=== PATIENT | female | born 1955 | race Caucasian/White ===

== ENCOUNTER 2018-01-09 10:30 | Inpatient (IN) | payer MEDICAID ==
[~2018-01-09] VITALS: Ht 157.5 cm; Wt 88.5 kg
[2018-01-09 12:13] LABS: BASOPHILS % (AUTO) 0.6 % (0-1); EOSINOPHILS # (AUTO) 0.2 X10'3 (0-0.9); LYMPHOCYTES # (AUTO) 3.3 X10'3 (1.1-4.8); MEAN CORPUSCULAR HEMOGLOBIN 25.9 PG (27.0-31.0); MEAN CORPUSCULAR HGB CONC 32.7 % (33.0-36.5); MEAN CORPUSCULAR VOLUME 79.2 FL (78-98); MEAN PLATELET VOLUME 7.7 FL (7.4-10.4); MONOCYTES # (AUTO) 0.8 X10'3 (0-0.9); MONOCYTES % (AUTO) 10.5 % (2-12); NEUTROPHILS # (AUTO) 3.6 X10'3 (1.8-7.7); NEUTROPHILS % (AUTO) 44.9 % (42-75); PRE OP HEMOGLOBIN 13.7 g/dL (12.0-16.0); PRE OP PLATELET COUNT 319 X10'3 (140-440); RED CELL DISTRIBUTION WIDTH 14.8 % (11.5-14.5)
[2018-01-09 12:23] LABS: PRE OP INR 0.9 INR; PRE OP PROTIME 9.4 SECONDS (9.0-12.0)
[2018-01-09] MEDS ORDERED: LOSA25TA96 PO (12:32)
[2018-01-09] MEDS ORDERED: LORA10TA7 PO (12:32)
[2018-01-09] MEDS ORDERED: VOLTAREN GEL TOP (12:32)
[2018-01-09] MEDS ORDERED: NAPR-56 PO (12:32)
[2018-01-09] MEDS ORDERED: MONT10TA21 PO (12:32)
[2018-01-09] MEDS ORDERED: RANI150T44 PO (12:32)
[2018-01-09] MEDS ORDERED: CALC-854 PO (12:32)
[2018-01-09] MEDS ORDERED: ALBU18HF2 IH (12:32)
[2018-01-09] MEDS ORDERED: BECL7.3A INH (12:32)
[2018-01-09] MEDS ORDERED: LEVO100T PO (12:32)
[2018-01-09] MEDS ORDERED: MULT-38 PO (12:32)
[2018-01-09] MEDS ORDERED: METH500T PO (12:32)
[2018-01-09] MEDS ORDERED: PHYT100T PO (12:32)
[2018-01-09] MEDS ORDERED: CHOL10002 PO (12:32)
[2018-01-09 12:38] LABS: ALBUMIN/GLOBULIN RATIO 1.1 (1.1-1.5); ALKALINE PHOSPHATASE 68 IU/L (46-116); BLOOD UREA NITROGEN 14 MG/DL (7-18); BUN/CREATININE RATIO 19.2 (6.6-38.0); CALCIUM 10.4 MG/DL (8.5-10.1); CHLORIDE 104 MMOL/L (99-107); CREATININE 0.73 MG/DL (0.40-0.90); PRE OP ALT 35 U/L (30-65); PRE OP ANION GAP 10 (8-16); PRE OP AST 19 U/L (10-37); PRE OP BILIRUB, TOTAL 0.5 MG/DL (0.0-1.0); PRE OP GLUCOSE 89 MG/DL (70-104); PRE OP SODIUM 143 MMOL/L (135-145); TOTAL PROTEIN 7.6 G/DL (6.4-8.2); eGFR 81 ML/MIN
[2018-01-15] VITALS (18 sets, daily range): BP systolic 97–112; BP diastolic 62–82
[2018-01-15] MEDS ORDERED: ringers solution, lacted 1,000 ML IV SCH ×2 (05:00→11:40)
[2018-01-15] MEDS ORDERED: tranexamic acid inj. 900 MG in normal saline 100ml IV soln 91 ML IV ONE ×2 (05:30→06:30)
[2018-01-15] MEDS ORDERED: Cefazolin 2GM/100ML NS IVPB IV ONE (05:30)
[2018-01-15] MEDS ORDERED: VANCOMYCIN INJ 1000 MG in NORMAL SALINE 250ml IV.SOLN IV ONE (05:30)
[2018-01-15] MEDS ORDERED: albuterol 2.5 MG/3 ML nebule NEB ONE (05:30)
[2018-01-15] MEDS ORDERED: famotidine 20mg tablet PO ONE (05:30)
[2018-01-15] MEDS ORDERED: ROPIVAcaine 0.5% (5mg/ml) 30ml vial ONE ×2 (08:21→08:34)
[2018-01-15] MEDS ORDERED: dexamethasone sod phosphate 4mg/ml inj. ONE (08:23)
[2018-01-15] MEDS ORDERED: ketorolac trometh. 30mg/ml inj. ONE (08:33)
[2018-01-15] MEDS ORDERED: vancomycin 1,000mg inj ONE (08:34)
[2018-01-15] MEDS ORDERED: sevoflurane 250ml liquid IH ONE (10:40)
[2018-01-15] MEDS ORDERED: fentaNYL/PF 50MCG/1 ML 2ML syringe ONE (10:46)
[2018-01-15] MEDS ORDERED: midazolam 2 mg/2 ml injection ONE (10:46)
[2018-01-15] MEDS ORDERED: ePHEDrine 50MG/ML INJ. ONE (11:15)
[2018-01-15] MEDS ORDERED: propofol inj 20 ML IV ONE (11:32)
[2018-01-15] MEDS ORDERED: ondansetron/PF 4mg/2ml inj ONE (11:36)
[2018-01-15] MEDS ORDERED: morphine 4 MG/ML inj SYRINge IV PRN ×2 (11:40)
[2018-01-15] MEDS ORDERED: labetalol 5mg/ml 20ml inj. IV PRN (11:40)
[2018-01-15] MEDS ORDERED: ondansetron/PF 4mg/2ml inj IV PRN ×2 (11:40→13:05)
[2018-01-15] MEDS ORDERED: hydrALAZINE 20mg/ml inj. IV PRN (11:40)
[2018-01-15] MEDS ORDERED: fentaNYL/PF 50MCG/1 ML 2ML syringe IV PRN ×2 (11:40)
[2018-01-15] MEDS ORDERED: non-formulary drug (Albuterol Sulfate (Ventolin Hfa) 2 PUFFS) IH PRN (13:05)
[2018-01-15] MEDS ORDERED: magnesium hydroxide 30ml (MOM) UD suspension PO PRN (13:05)
[2018-01-15] MEDS ORDERED: diphenhydrAMINE 25mg capsule PO PRN ×2 (13:05)
[2018-01-15] MEDS ORDERED: VOLTAREN TOP PRN (13:05)
[2018-01-15] MEDS ORDERED: acetaminophen 325mg tablet PO PRN (13:05)
[2018-01-15] MEDS ORDERED: oxyCODONE IR 5mg (immed. release) tablet PO PRN (13:05)
[2018-01-15] MEDS ORDERED: HYDROmorphone inj. 0.5 MG/0.5 ML DISP.SYRIN IV PRN ×2 (13:05)
[2018-01-15] MEDS ORDERED: bisacodyl 10mg suppository rectal RC PRN (13:05)
[2018-01-15] MEDS ORDERED: albuterol 2.5 MG/3 ML nebule NEB PRN (13:30)
[2018-01-15] MEDS ORDERED: VOLTAREN GEL TP PRN (13:35)
[2018-01-15] MEDS: acetaminophen 325mg tablet PO SCH ×2 (14:00→20:07)
[2018-01-15] MEDS: ketorolac tromethamine 15mg/ml inj. IV SCH ×2 (14:10→20:06)
[2018-01-15] MEDS: potassium cl 20mEq in 1/2 NS 1,000 ML IV SCH (14:13)
[2018-01-15] MEDS: ceFAZolin 1GM/D5W- ADD-VANTAGE 50 ML IV SCH ×2 (15:59→23:29)
[2018-01-15] MEDS ORDERED: CALCIUM CITRATE PO SCH (16:00)
[2018-01-15] MEDS ORDERED: VITAMIN D3 PO SCH (16:00)
[2018-01-15] MEDS ORDERED: non-formulary drug (Methocarbamol (Robaxin) 1 TAB) PO SCH (16:00)
[2018-01-15] MEDS ORDERED: tranexamic acid inj. 900 MG in normal saline 100ml IV soln 100 ML IV ONE (16:05)
[2018-01-15] MEDS: calcium carbonate/vitamin D3 tablet PO SCH (17:20)
[2018-01-15] MEDS: oxyCODONE IR 5mg (immed. release) tablet PO PRN (17:21)
[2018-01-15] MEDS: QVAR 40 MCG IH SCH (20:00)
[2018-01-15] MEDS ORDERED: naproxen 500mg tablet PO SCH (20:00)
[2018-01-15] MEDS ORDERED: non-formulary drug (Ranitidine HCl (Zantac) 1 TAB) PO SCH (20:00)
[2018-01-15] MEDS ORDERED: non-formulary drug (Beclomethasone Dipropionate (Qvar 40 MCG INHALER) 2 PUFFS) INH SCH (20:00)
[2018-01-15] MEDS ORDERED: vancomycin/NS 1 GM ADD-VANTAGE 250 ML IV SCH (20:00)
[2018-01-15] MEDS: famotidine 20mg tablet PO SCH (20:07)
[2018-01-15] MEDS: cyclobenzaprine 10mg tablet PO SCH (20:08)
[2018-01-15] MEDS: gabapentin 300mg capsule PO SCH (20:09)
[2018-01-15] MEDS ORDERED: montelukast 10mg tablet PO SCH (21:00)
[2018-01-15] MEDS ORDERED: sennosides 8.6mg tablet PO SCH (21:00)
[2018-01-16] MEDS: potassium cl 20mEq in 1/2 NS 1,000 ML IV SCH (00:36)
[2018-01-16] MEDS: acetaminophen 325mg tablet PO SCH ×3 (02:00→13:15)
[2018-01-16] MEDS: ketorolac tromethamine 15mg/ml inj. IV SCH ×2 (02:01→07:45)
[2018-01-16 02:17] VITALS: BP 98/58
[2018-01-16 05:46] LABS: BASOPHILS % (AUTO) 0.3 % (0-1); EOSINOPHILS # (AUTO) 0.2 X10'3 (0-0.9); EOSINOPHILS % (AUTO) 1.3 % (0-6); HEMATOCRIT 32.3 % (35.0-45.0); HEMOGLOBIN 10.6 g/dl (12.0-16.0); LYMPHOCYTES # (AUTO) 1.3 X10'3 (1.1-4.8); LYMPHOCYTES % (AUTO) 10.7 % (21-51); MEAN PLATELET VOLUME 7.3 FL (7.4-10.4); NEUTROPHILS # (AUTO) 9.7 X10'3 (1.8-7.7); NEUTROPHILS % (AUTO) 79.7 % (42-75); PLATELET COUNT 262 X10'3 (140-440); RED BLOOD COUNT 4.09 X10'6 (4.20-5.60); RED CELL DISTRIBUTION WIDTH 14.4 % (11.5-14.5); WHITE BLOOD COUNT 12.1 X10'3 (4.5-11.0)
[2018-01-16 06:00] VITALS: BP 100/61
[2018-01-16 06:05] LABS: ANION GAP 8 (8-16); CHLORIDE 107 MMOL/L (99-107); SODIUM 139 MMOL/L (135-145); TOTAL CARBON DIOXIDE 24.1 MMOL/L (24-32)
[2018-01-16] MEDS: calcium carbonate/vitamin D3 tablet PO SCH ×2 (07:45→13:16)
[2018-01-16] MEDS: cyclobenzaprine 10mg tablet PO SCH ×2 (07:46→13:16)
[2018-01-16] MEDS: famotidine 20mg tablet PO SCH (07:46)
[2018-01-16] MEDS: gabapentin 300mg capsule PO SCH ×2 (07:54→13:00)
[2018-01-16] MEDS ORDERED: non-formulary drug (Multivitamin (Daily Multiple Vitamin) 1 TAB) PO SCH (08:00)
[2018-01-16] MEDS ORDERED: CHOLECALCIFEROL 5000 UNIT PO SCH (08:00)
[2018-01-16] MEDS ORDERED: multivitamins, therapeutics tablet PO SCH (08:00)
[2018-01-16] MEDS ORDERED: losartan 50mg tablet PO SCH (08:00)
[2018-01-16] MEDS: QVAR 40 MCG IH SCH (08:00)
[2018-01-16] MEDS ORDERED: levoTHYROXINE 100mcg tablet PO SCH (08:00)
[2018-01-16] MEDS ORDERED: vitamin D (cholecalciferol) 1,000 unit tablet PO SCH (08:00)
[2018-01-16] MEDS ORDERED: loratadine 10mg tablet PO SCH (08:00)
[2018-01-16] MEDS ORDERED: PHYTONADIONE 100 MCG PO SCH (08:00)
[2018-01-16] MEDS ORDERED: aspirin 325mg tablet PO SCH (08:30)
[2018-01-16] MEDS: oxyCODONE IR 5mg (immed. release) tablet PO PRN ×2 (09:30→13:16)
[2018-01-16 10:00] VITALS: BP 93/63
[2018-01-16] MEDS ORDERED: ASPI-1 PO (11:25)
[2018-01-16] MEDS ORDERED: celeCOXIB 100mg capsule PO SCH (20:00)
[2018-01-17] MEDS ORDERED: acetaminophen 325mg tablet PO PRN (13:05)
== END 2018-01-16 14:30 | disposition home or self-care (01) | DRG 315 ==
LOC: EDSTATUS 10:30 → PAS IN 01-15 07:19 → EDSTATUS 01-15 11:00 → ORTHO 4S 01-15 13:50
PROVIDERS: ADMIT Orthopaedic Surgery; ATTEND Orthopaedic Surgery
PROC: 0LS30ZZ Reposition Right Upper Arm Tendon, Open Approach (ICD-10-PCS; 2018-01-15)
PROC: 0RRJ00Z Replacement of Right Shoulder Joint with Reverse Ball and Socket Synthetic Substitute, Open Approach (ICD-10-PCS; principal; 2018-01-15 10:45)
DX: M19.011 Primary osteoarthritis, right shoulder (principal); D62 Acute posthemorrhagic anemia; I10 Essential (primary) hypertension; E03.9 Hypothyroidism, unspecified; J45.909 Unspecified asthma, uncomplicated; M75.21 Bicipital tendinitis, right shoulder; M75.121 Complete rotator cuff tear or rupture of right shoulder, not specified as traumatic; K21.9 Gastro-esophageal reflux disease without esophagitis; F43.10 Post-traumatic stress disorder, unspecified; M81.0 Age-related osteoporosis without current pathological fracture; Z79.899 Other long term (current) drug therapy; Z79.01 Long term (current) use of anticoagulants; Z79.82 Long term (current) use of aspirin; Z56.0 Unemployment, unspecified
CPT/HCPCS: 36415; 71046; 80051; 80053; 85025; 85610; 85730; 86885; 86900; 86901; 87070; 94640; 94760; 97110; 97116; 97162; 97530; J0690; J1100; J1885; J2250; J2405; J2704; J2795; J3010; J3370; J3490; J7030; J7120

== ENCOUNTER 2019-10-14 05:45 | Inpatient (IN) | payer MEDICAID ==
[2019-10-07 12:39] LABS: BASOPHILS % (AUTO) 0.5 % (0-1); EOSINOPHILS # (AUTO) 0.2 X10'3 (0-0.9); EOSINOPHILS % (AUTO) 1.8 % (0-6); LYMPHOCYTES # (AUTO) 2.6 X10'3 (1.1-4.8); LYMPHOCYTES % (AUTO) 29.8 % (21-51); MEAN CORPUSCULAR HEMOGLOBIN 25.2 PG (27.0-31.0); MEAN CORPUSCULAR HGB CONC 32.6 g/dL (33.0-36.5); MEAN CORPUSCULAR VOLUME 77.3 FL (78-98); MEAN PLATELET VOLUME 7.7 FL (7.4-10.4); MONOCYTES # (AUTO) 0.9 X10'3 (0-0.9); MONOCYTES % (AUTO) 10.3 % (2-12); NEUTROPHILS % (AUTO) 57.6 % (42-75); PRE OP HEMATOCRIT 44.1 % (35.0-45.0); PRE OP HEMOGLOBIN 14.4 g/dL (12.0-16.0); PRE OP PLATELET COUNT 344 X10'3 (140-440); RED CELL DISTRIBUTION WIDTH 15.2 % (11.5-14.5)
[2019-10-07 12:45] LABS: PRE OP PARTIAL THROMB. TIME 22 SECONDS (22-32); PRE OP PROTIME 9.3 SECONDS (9.0-12.0)
[2019-10-07 13:09] LABS: PRE OP INR < 0.9 INR
[2019-10-07 15:10] LABS: ALBUMIN/GLOBULIN RATIO 1.1 (1.1-1.5); ALKALINE PHOSPHATASE 74 IU/L (46-116); BLOOD UREA NITROGEN 18 MG/DL (7-18); BUN/CREATININE RATIO 22.5 (6.6-38.0); CALCIUM 10.1 MG/DL (8.5-10.1); CHLORIDE 106 MMOL/L (99-107); PRE OP ALT 51 U/L (30-65); PRE OP ANION GAP 12 (8-16); PRE OP AST 21 U/L (10-37); PRE OP BILIRUB, TOTAL 0.3 MG/DL (0.0-1.0); PRE OP GLUCOSE 100 MG/DL (70-104); PRE OP POTASSIUM 4.2 MMOL/L (3.4-5.1); PRE OP SODIUM 145 MMOL/L (135-145); TOTAL CARBON DIOXIDE 26.6 MMOL/L (24-32); TOTAL PROTEIN 7.7 G/DL (6.4-8.2); eGFR 73 ML/MIN
[2019-10-07 16:12] LABS: HEMOGLOBIN A1C 6.6 % (4.5-6.2)
[2019-10-14] VITALS (20 sets, daily range): BP systolic 103–130; BP diastolic 59–95
[~2019-10-14] VITALS: Ht 157.5 cm; Wt 102.0 kg
[~2019-10-14 05:45] MED LIST: ALBU18HF2 IH; BECL7.3A INH; CALC-854 PO; CHOL10002 PO; CYAN-51 PO; DICL100G15 TOP; FAMO20TA8 PO; LEVO100T PO; LORA10TA7 PO; LOSA25TA96 PO; METF500T20 PO; METH500T PO; MONT10TA21 PO; MULT-38 PO; NAPR-56 PO; PHYT100T PO; SUMA25TA35 PO; cefazolin/dext.iso 2gm/100ml 100 ML IV ONE; famotidine 10mg tablet PO ONE; ringers solution, lacted 1,000 ML IV SCH; tranexamic acid 1gm/0.7% sal. 100 ML IV ONE; tranexamic acid inj. 1,000 MG in normal saline 100 ML IV ONE; vancomycin inj 1,500 MG in normal saline 300ml IV soln IV ONE
[2019-10-14] MEDS ORDERED: ketorolac trometh. 30mg/ml inj. ONE (06:50)
[2019-10-14] MEDS ORDERED: ROPIVAcaine 0.5% (5mg/ml) 30ml vial ONE ×2 (06:50→10:45)
[2019-10-14] MEDS ORDERED: mineral oil 10ml sterile, topical TP ONE (06:51)
[2019-10-14] MEDS ORDERED: tetracaine 1% (10mg/ml) pres. free inj. ONE (07:39)
[2019-10-14] MEDS ORDERED: midazolam 2 mg/2 ml injection ONE (08:43)
[2019-10-14] MEDS ORDERED: diphenhydrAMINE 50 mg/ml inj ONE (09:33)
[2019-10-14] MEDS ORDERED: ePHEDrine 50MG/ML INJ. ONE ×2 (09:33→10:25)
[2019-10-14] MEDS ORDERED: propofol inj 20 ML IV ONE ×3 (09:33→10:25)
[2019-10-14] MEDS ORDERED: ringers solution, lacted 1,000 ML IV SCH (09:34)
[2019-10-14] MEDS ORDERED: ondansetron/PF 4mg/2ml inj IV PRN ×2 (09:35→10:55)
[2019-10-14] MEDS ORDERED: morphine 4 MG/ML inj SYRINge IV PRN ×2 (09:35)
[2019-10-14] MEDS ORDERED: acetaminophen 1,000mg/100ml IV 100 ML IV PRN (09:35)
[2019-10-14] MEDS ORDERED: meperidine/PF 25mg/ml syringe IV PRN ×2 (09:35)
[2019-10-14] MEDS ORDERED: proCHLORperazine 10 MG/2 ml inj IV PRN (09:35)
[2019-10-14] MEDS ORDERED: ROPIVAcaine 0.2% (10 MG/5 ML) BOLUS INJECTION ADDCANAL PRN (09:40)
--- NOTE | 2019-10-14 10:51 | NUR ---
Received from OR via BED, accompanied by Anesthesiologist DR FLOWER and report given by Anesthesiolgist. PT AWAKE AND ALERT STATING PAIN LEVEL OF 8. PIV FAVIAN PATENT AND RUNNING LR AT 100 ML /HR. EXTREMITIES WARM AND PINK WITH PEDAL PULSES PRESENT. SENSATION PRESENT AT UMBILICUS. SURI DRESSING DRY AND INTACT WITH ICE APPLIED UNDER KNEE WRAP.F/C DRAINING CLEAR YELLOW URINE. ON Q PAIN CATHETER IN PLACE RLE.
[2019-10-14] MEDS ORDERED: HYDROmorphone inj. 0.5 MG/0.5 ML DISP.SYRIN IV PRN (10:55)
[2019-10-14] MEDS ORDERED: diphenhydrAMINE 25mg capsule PO PRN ×2 (10:55)
[2019-10-14] MEDS ORDERED: acetaminophen 325mg tablet PO PRN (10:55)
[2019-10-14] MEDS ORDERED: HYDROmorphone 1 mg/ml syringe IV PRN (10:55)
[2019-10-14] MEDS ORDERED: magnesium hydroxide 30ml (MOM) UD suspension PO PRN (10:55)
[2019-10-14] MEDS ORDERED: oxyCODONE IR 5mg (immed. release) tablet PO PRN (10:55)
[2019-10-14] MEDS ORDERED: bisacodyl 10mg suppository rectal RC PRN (10:55)
[2019-10-14] MEDS ORDERED: SUMAtriptan 25 MG tablet PO PRN (10:55)
[2019-10-14] MEDS: meperidine/PF 25mg/ml syringe IV PRN ×2 (11:04→11:50)
[2019-10-14] MEDS ORDERED: albuterol 2.5 MG/3 ML nebule NEB PRN (11:15)
[2019-10-14] MEDS: ROPIVAcaine 0.2%/PF PUMP/bolus 550 ML ADDCANAL SCH (12:03)
--- NOTE | 2019-10-14 12:11 | NUR ---
Report called to receiving nurse BARBI. Transferred via BED WITH Belongings . Special Issues communicated to receiving nurse. SENSATION AT TOP OF THIGHS, EXTREMITIES PINK AND WARM WITH GOOD PEDAL PULSES. SURI DRESSING AND KNEE WRAP CLEAN DRY AND INTACT WITH ON Q PUMP ON . F/C DRAINING CLEAR YELOW URINE, PIV TALAT PATENT RUNNING LR AT 100. AWAKE AND ALERT WITH PAIN LEVEL AT 5.
[2019-10-14] MEDS ORDERED: tranexamic acid inj. 1,000 MG in normal saline 100ml IV soln 100 ML IV ONE (14:00)
[2019-10-14] MEDS: acetaminophen 325mg tablet PO SCH ×2 (16:27→20:13)
[2019-10-14] MEDS: calcium carbonate/vitamin D3 tablet PO SCH ×2 (16:27→23:28)
[2019-10-14] MEDS: potassium cl 20mEq in 1/2 NS 1,000 ML IV SCH ×2 (16:28→20:15)
[2019-10-14] MEDS: ceFAZolin 1GM/D5W- ADD-VANTAGE 50 ML IV SCH ×2 (17:37→23:30)
--- NOTE | 2019-10-14 18:15 | NUR ---
Received patient report from ARVIND Mora. Assumed patient care.
[2019-10-14] MEDS: famotidine 20mg tablet PO SCH (19:08)
[2019-10-14] MEDS: budesonide 0.5mg/2ml UD nebule IH SCH (19:32)
[2019-10-14] MEDS ORDERED: vancomycin/NS 1 GM ADD-VANTAGE 250 ML IV SCH (20:00)
[2019-10-14] MEDS: montelukast 10mg tablet PO SCH (20:13)
[2019-10-14] MEDS: naproxen 500mg tablet PO SCH (20:14)
[2019-10-14] MEDS: metFORMIN 500mg tablet PO SCH (20:14)
[2019-10-14] MEDS: sennosides 8.6mg tablet PO SCH (20:14)
[2019-10-14] MEDS: oxyCODONE IR 5mg (immed. release) tablet PO PRN (23:29)
[2019-10-15 02:00] VITALS: BP 110/75
[2019-10-15] MEDS: acetaminophen 325mg tablet PO SCH ×4 (02:45→20:00)
[2019-10-15 05:11] LABS: BASOPHILS % (AUTO) 0.5 % (0-1); EOSINOPHILS # (AUTO) 0.2 X10'3 (0-0.9); EOSINOPHILS % (AUTO) 1.9 % (0-6); HEMATOCRIT 36.7 % (35.0-45.0); HEMOGLOBIN 12.1 g/dl (12.0-16.0); LYMPHOCYTES # (AUTO) 2.1 X10'3 (1.1-4.8); LYMPHOCYTES % (AUTO) 24.2 % (21-51); MEAN CORPUSCULAR HEMOGLOBIN 25.4 PG (27.0-31.0); MEAN CORPUSCULAR HGB CONC 33.1 g/dL (33.0-36.5); MEAN CORPUSCULAR VOLUME 76.8 FL (78-98); MONOCYTES % (AUTO) 11.5 % (2-12); NEUTROPHILS # (AUTO) 5.5 X10'3 (1.8-7.7); NEUTROPHILS % (AUTO) 61.9 % (42-75); PLATELET COUNT 306 X10'3 (140-440); RED BLOOD COUNT 4.77 X10'6 (4.20-5.60); RED CELL DISTRIBUTION WIDTH 14.5 % (11.5-14.5); WHITE BLOOD COUNT 8.8 X10'3 (4.5-11.0)
[2019-10-15 05:23] LABS: ANION GAP 6 (8-16); CHLORIDE 106 MMOL/L (99-107); POTASSIUM 4.1 MMOL/L (3.5-5.1); SODIUM 140 MMOL/L (135-145); TOTAL CARBON DIOXIDE 27.6 MMOL/L (24-32)
[2019-10-15] MEDS: potassium cl 20mEq in 1/2 NS 1,000 ML IV SCH ×3 (05:35→18:55)
[2019-10-15 06:00] VITALS: BP 117/73
--- NOTE | 2019-10-15 06:16 | NUR ---
Patient report given, questions answered and plan of care reviewed with ARVIND Mora.
[2019-10-15] MEDS: oxyCODONE IR 5mg (immed. release) tablet PO PRN ×3 (07:12→18:58)
[2019-10-15] MEDS: famotidine 20mg tablet PO SCH ×2 (07:12→20:20)
[2019-10-15] MEDS: levoTHYROXINE 100mcg tablet PO SCH (07:12)
[2019-10-15] MEDS: naproxen 500mg tablet PO SCH ×3 (08:00→20:20)
[2019-10-15] MEDS: losartan 25mg tablet PO SCH (08:00)
[2019-10-15] MEDS: budesonide 0.5mg/2ml UD nebule IH SCH ×2 (09:50→20:11)
[2019-10-15 10:00] VITALS: BP 125/72
[2019-10-15] MEDS: loratadine 10mg tablet PO SCH (10:00)
[2019-10-15] MEDS: metFORMIN 500mg tablet PO SCH ×2 (10:00→20:20)
[2019-10-15] MEDS: multivitamins, therapeutics tablet PO SCH (10:01)
[2019-10-15] MEDS: vitamin D (cholecalciferol) 1,000 unit tablet PO SCH (10:01)
[2019-10-15] MEDS: calcium carbonate/vitamin D3 tablet PO SCH ×2 (10:01→17:41)
[2019-10-15] MEDS: cyanocobalamin 500mcg tablet PO SCH (10:01)
[2019-10-15] MEDS: aspirin 325mg tablet PO SCH (10:01)
--- NOTE | 2019-10-15 13:02 | NUR ---
Joint replacement consult: Pt seen by RD for written/verbal high protein ed. RD reviewed high protein needs for wound healing, immune strength, high protein foods, and protein supplementation options. RD contact information provided in case of further questions. Pt is agreeable to sri HE; notified. Pt also dislikes bread and sugar substitutes; dietary notified. Addendum: 10/15/19 at [address] Amended: Links added.
[2019-10-15 18:00] VITALS: BP 146/82
--- NOTE | 2019-10-15 18:10 | NUR ---
Received patient report from ARVIND Mora.
--- NOTE | 2019-10-15 18:13 | NUR ---
report to Keely SAMUELS
[2019-10-15] MEDS: montelukast 10mg tablet PO SCH (20:20)
[2019-10-15] MEDS: sennosides 8.6mg tablet PO SCH (20:20)
[2019-10-15] MEDS: ROPIVAcaine 0.2%/PF PUMP/bolus 550 ML ADDCANAL SCH (21:44)
[2019-10-15 22:00] VITALS: BP 125/81
[2019-10-16] MEDS: calcium carbonate/vitamin D3 tablet PO SCH ×3 (00:53→16:23)
[2019-10-16] MEDS: acetaminophen 325mg tablet PO SCH ×2 (00:53→08:31)
[2019-10-16] MEDS: oxyCODONE IR 5mg (immed. release) tablet PO PRN ×5 (01:01→19:28)
[2019-10-16] MEDS: potassium cl 20mEq in 1/2 NS 1,000 ML IV SCH (02:55)
[2019-10-16 06:09] LABS: BASOPHILS # (AUTO) 0.1 X10'3 (0-0.2); BASOPHILS % (AUTO) 0.5 % (0-1); EOSINOPHILS # (AUTO) 0.2 X10'3 (0-0.9); EOSINOPHILS % (AUTO) 1.7 % (0-6); HEMATOCRIT 37.6 % (35.0-45.0); HEMOGLOBIN 12.3 g/dl (12.0-16.0); LYMPHOCYTES # (AUTO) 2.6 X10'3 (1.1-4.8); LYMPHOCYTES % (AUTO) 22.6 % (21-51); MEAN CORPUSCULAR HGB CONC 32.6 g/dL (33.0-36.5); MEAN CORPUSCULAR VOLUME 76.7 FL (78-98); MONOCYTES # (AUTO) 1.3 X10'3 (0-0.9); MONOCYTES % (AUTO) 11.7 % (2-12); NEUTROPHILS # (AUTO) 7.2 X10'3 (1.8-7.7); NEUTROPHILS % (AUTO) 63.5 % (42-75); PLATELET COUNT 311 X10'3 (140-440); RED BLOOD COUNT 4.91 X10'6 (4.20-5.60); RED CELL DISTRIBUTION WIDTH 14.7 % (11.5-14.5); WHITE BLOOD COUNT 11.4 X10'3 (4.5-11.0)
[2019-10-16 06:10] VITALS: BP 127/71
--- NOTE | 2019-10-16 06:10 | NUR ---
Patient in room [facility]23. I have received report from Keely SAMUELS and had the opportunity to ask questions and assume patient care.
--- NOTE | 2019-10-16 06:25 | NUR ---
Patient report given, questions answered and plan of care reviewed with ARVIND Rothman.
[2019-10-16] MEDS: levoTHYROXINE 100mcg tablet PO SCH (07:08)
[2019-10-16] MEDS: JUVEN Smoothie Arginine/Glut./Ca2+Bmb (Juven 19.3pkt) 240ml cup PO SCH ×2 (08:00→17:30)
[2019-10-16] MEDS: budesonide 0.5mg/2ml UD nebule IH SCH ×2 (08:24→20:26)
[2019-10-16] MEDS: vitamin D (cholecalciferol) 1,000 unit tablet PO SCH (08:29)
[2019-10-16] MEDS: metFORMIN 500mg tablet PO SCH ×2 (08:29→19:28)
[2019-10-16] MEDS: loratadine 10mg tablet PO SCH (08:29)
[2019-10-16] MEDS: losartan 25mg tablet PO SCH (08:29)
[2019-10-16] MEDS: cyanocobalamin 500mcg tablet PO SCH (08:29)
[2019-10-16] MEDS: famotidine 20mg tablet PO SCH ×2 (08:29→19:27)
[2019-10-16] MEDS: multivitamins, therapeutics tablet PO SCH (08:29)
[2019-10-16] MEDS: aspirin 325mg tablet PO SCH (08:29)
[2019-10-16 10:00] VITALS: BP 140/77
[2019-10-16] MEDS: enoxaparin 30mg/0.3ml syringe SUBCUT SCH (10:12)
--- NOTE | 2019-10-16 10:27 | NUR ---
DM Consult: Pt A1C <7 and not appropriate for DM ed at this time. Addendum: 10/16/19 at [address] Amended: Links added.
[2019-10-16] MEDS ORDERED: acetaminophen 325mg tablet PO PRN (10:55)
[2019-10-16 18:00] VITALS: BP 144/90
--- NOTE | 2019-10-16 18:27 | NUR ---
Problems reprioritized. Patient report given, questions answered & plan of care reviewed with Jes SAMUELS.
[2019-10-16] MEDS: sennosides 8.6mg tablet PO SCH (19:27)
[2019-10-16] MEDS: montelukast 10mg tablet PO SCH (19:27)
[2019-10-16] MEDS: naproxen 500mg tablet PO SCH (19:27)
[2019-10-16 22:00] VITALS: BP 139/76
[2019-10-17] MEDS: oxyCODONE IR 5mg (immed. release) tablet PO PRN ×3 (02:14→13:12)
[2019-10-17 06:00] VITALS: BP 136/79
[2019-10-17 06:14] LABS: BASOPHILS % (AUTO) 0.4 % (0-1); EOSINOPHILS # (AUTO) 0.2 X10'3 (0-0.9); EOSINOPHILS % (AUTO) 1.8 % (0-6); HEMATOCRIT 37.3 % (35.0-45.0); HEMOGLOBIN 12.1 g/dl (12.0-16.0); LYMPHOCYTES # (AUTO) 2.3 X10'3 (1.1-4.8); LYMPHOCYTES % (AUTO) 19.3 % (21-51); MEAN CORPUSCULAR HEMOGLOBIN 24.9 PG (27.0-31.0); MEAN CORPUSCULAR HGB CONC 32.4 g/dL (33.0-36.5); MEAN CORPUSCULAR VOLUME 76.9 FL (78-98); MEAN PLATELET VOLUME 7.3 FL (7.4-10.4); MONOCYTES # (AUTO) 1.3 X10'3 (0-0.9); MONOCYTES % (AUTO) 10.5 % (2-12); NEUTROPHILS # (AUTO) 8.3 X10'3 (1.8-7.7); PLATELET COUNT 327 X10'3 (140-440); RED BLOOD COUNT 4.85 X10'6 (4.20-5.60); RED CELL DISTRIBUTION WIDTH 14.7 % (11.5-14.5); WHITE BLOOD COUNT 12.2 X10'3 (4.5-11.0)
--- NOTE | 2019-10-17 06:36 | NUR ---
Problems reprioritized. Patient report given, questions answered & plan of care reviewed with ARVIND Veronica.
[2019-10-17] MEDS: famotidine 20mg tablet PO SCH (07:56)
[2019-10-17] MEDS: metFORMIN 500mg tablet PO SCH (07:56)
[2019-10-17] MEDS: cyanocobalamin 500mcg tablet PO SCH (07:56)
[2019-10-17] MEDS: levoTHYROXINE 100mcg tablet PO SCH (07:56)
[2019-10-17] MEDS: vitamin D (cholecalciferol) 1,000 unit tablet PO SCH (07:57)
[2019-10-17] MEDS: multivitamins, therapeutics tablet PO SCH (07:57)
[2019-10-17] MEDS: naproxen 500mg tablet PO SCH (07:57)
[2019-10-17] MEDS: loratadine 10mg tablet PO SCH (07:57)
[2019-10-17] MEDS: calcium carbonate/vitamin D3 tablet PO SCH ×2 (07:57)
[2019-10-17] MEDS: losartan 25mg tablet PO SCH (07:57)
[2019-10-17] MEDS: enoxaparin 30mg/0.3ml syringe SUBCUT SCH (07:58)
[2019-10-17] MEDS: budesonide 0.5mg/2ml UD nebule IH SCH (08:35)
[2019-10-17] MEDS: ROPIVAcaine 0.2%/PF PUMP/bolus 550 ML ADDCANAL SCH ×2 (09:00→12:00)
[2019-10-17 10:00] VITALS: BP 126/91
[2019-10-17] MEDS: JUVEN Smoothie Arginine/Glut./Ca2+Bmb (Juven 19.3pkt) 240ml cup PO SCH ×2 (12:00→13:06)
== END 2019-10-17 13:30 | DRG 302 ==
LOC: PAS IN 05:45 → EDSTATUS 09:00 → ORTHO 4S 12:30
PROVIDERS: ADMIT Orthopaedic Surgery; ATTEND Orthopaedic Surgery
PROC: 5A09357 Assistance with Respiratory Ventilation, Less than 24 Consecutive Hours, Continuous Positive Airway Pressure (ICD-10-PCS; 2019-10-14)
PROC: 0SRC069 Replacement of Right Knee Joint with Oxidized Zirconium on Polyethylene Synthetic Substitute, Cemented, Open Approach (ICD-10-PCS; principal; 2019-10-15)
PROC: 3E0T3BZ Introduction of Anesthetic Agent into Peripheral Nerves and Plexi, Percutaneous Approach (ICD-10-PCS; 2019-10-15)
PROC: 5A09357 Assistance with Respiratory Ventilation, Less than 24 Consecutive Hours, Continuous Positive Airway Pressure (ICD-10-PCS; 2019-10-17)
DX: M17.11 Unilateral primary osteoarthritis, right knee (principal); Z68.41 Body mass index [BMI] 40.0-44.9, adult; E03.9 Hypothyroidism, unspecified; E11.9 Type 2 diabetes mellitus without complications; I10 Essential (primary) hypertension; W01.0XXA Fall on same level from slipping, tripping and stumbling without subsequent striking against object, initial encounter; G47.30 Sleep apnea, unspecified; E66.9 Obesity, unspecified; J44.9 Chronic obstructive pulmonary disease, unspecified; M81.0 Age-related osteoporosis without current pathological fracture; K21.9 Gastro-esophageal reflux disease without esophagitis; Z88.5 Allergy status to narcotic agent; Y93.89 Activity, other specified; Y92.89 Other specified places as the place of occurrence of the external cause; Y99.8 Other external cause status; Z79.899 Other long term (current) drug therapy
CPT/HCPCS: 36415; 80051; 80053; 82948; 83036; 84443; 85025; 85610; 85730; 87081; 94640; 94760; 97110; 97116; 97162; 97530; A4215; A6454; A7000; C1713; C1758; C1776; G0378; J0690; J1200; J1650; J1885; J2175; J2250; J2704; J2795; J3370; J3480; J7120; J7626